=== PATIENT | female | born 1950 | race Caucasian/White ===

== ENCOUNTER 2023-03-31 16:49 | Emergency (ER) | payer OTHER ==
[~2023-03-31] VITALS: Ht 162.6 cm; Wt 99.8 kg
[2023-03-31 16:53] VITALS: BP 126/91; PULSE 107; RESP 18; TEMP 98.1; O2SAT 96
[2023-03-31] MEDS ORDERED: LIDOCAINE MPF 1% 5 ML ONE (19:40)
[2023-03-31] MEDS ORDERED: LIDOCAINE MPF 1% 10 MG/ML VIAL INJ ONE (19:40)
[2023-03-31] MEDS ORDERED: BACI-418 TP (20:03)
[2023-03-31] MEDS ORDERED: BACITRACIN OINT 500 UNITS/GM PKT TP ONE (20:05)
[2023-03-31 20:32] VITALS: BP 126/91; PULSE 107; RESP 18; TEMP 98.1; O2SAT 96
== END 2023-03-31 20:32 | disposition home or self-care (01) ==
LOC: MED 16:49
DX: S01.112A Laceration without foreign body of left eyelid and periocular area, initial encounter (principal); W18.30XA Fall on same level, unspecified, initial encounter; Y93.89 Activity, other specified; Y92.89 Other specified places as the place of occurrence of the external cause; Y99.8 Other external cause status
CPT/HCPCS: 12011; 70450; 72125; 90471; 90715; 99284; J2001